=== PATIENT | female | born 1995 | race Caucasian/White ===

== ENCOUNTER 2021-03-12 18:07 | Emergency (ER) | payer SELFPAY ==
--- NOTE | ~2021-03-12 | XR_ITS ---
XR ankle LT min 3V 03/12/2021 18:28 INDICATION: Left ankle pain PROCEDURE: 4 views left ankle COMPARISON: No prior studies for comparison. FINDINGS: Fracture, dislocation or subluxation is not identified. Ankle mortise intact. The soft tiss ues appear within normal limits. No foreign bodies are identified. IMPRESSION: 1: NO ACUTE BONE OR JOINT ABNORMALITY IDENTIFIED. Reviewed, dictated and finalized at location A. [employer] COUNSELOR ASSISTANT
[2021-03-12 18:16] VITALS: BP 115/80; PULSE 89; RESP 16; TEMP 36.3; O2SAT 97
--- NOTE | 2021-03-12 19:02 | ED.LOWEXIN ---
HPI - Extremity Injury (Lower) General Chief Complaint: Extremity Injury, Lower Stated Complaint: left ankle injury Time Seen by Provider: 03/12/21 18:49 Source: patient and RN notes reviewed Mode of arrival: ambulatory Limitations: no limitations History of Present Illness HPI Narrative: Patient presents today complaining of left ankle injury. She missed a step at home and fell twisting the ankle around 1300 this afternoon. She has been nonambulatory since the injury. Denies numbness or tingling. She currently rates her ankle pain 4/10 and has tried Tylenol and ibuprofen prior to arrival. This has provided some relief. Pain increases with weightbearing and movement. MD complaint: ankle injury Related Data Home Medications Medication Instructions Recorded Confirmed No Home Medications 03/12/21 03/12/21 Allergies Allergy/AdvReac Type Severity Reaction Status Date / Time Penicillins Allergy Intermediate Rash Verified 03/12/21 18:35 Review of Systems Review of Systems: CONSTITUTIONAL: Denies body aches, fever, chills, or sweats. EYES: Denies visual changes, redness, or discharge. ENT: Denies rhinorrhea, congestion, sore throat, or otalgia. CARDIOVASCULAR: Denies chest pain, palpitations, or edema. RESPIRATORY: Denies cough or dyspnea. GASTROINTESTINAL: Denies abdominal pain, nausea, vomiting, or diarrhea. GENITOURINARY: Denies dysuria or hematuria. SKIN: Denies rash, itching, or wounds. MUSCULOSKELETAL: Denies back pain, or myalgia. + Left ankle injury NEUROLOGIC: Denies headache, numbness, tingling, or weakness. PSYCH: Denies depression or anxiety. PMFSH Comments At time of signature, I have reviewed and agree with nursing past medical, surgical, social and family history unless otherwise noted. Please see nursing chart for further information. There is no relevant family history pertinent to the presenting complaint Exam Narrative: GENERAL: Well-appearing, well-nourished, and in no acute distress. HEAD: Normocephalic, atraumatic. EYES: EOMI. No redness or drainage. Conjunctivae normal. ENT: Mucous membranes pink and moist. NECK: Normal AROM. CHEST: No respiratory distress. EXTREMITIES: Left ankle: Tenderness, moderate localized swelling and ecchymosis to the lateral malleolus. Distal sensation intact. Capillary refill normal. Pedal pulse normal. Decreased range of motion due to pain. SKIN: Warm, dry, no rash. Capillary refill normal. Normal skin turgor. NEURO: No focal deficits. Alert and oriented x3. Gait steady. PSYCH: Normal affect. No signs of depression or anxiety. Course Vital Signs Vital signs: Vital Signs Temperature 97.3 F L 03/12/21 18:16 Pulse Rate 89 03/12/21 18:16 Respiratory Rate 16 03/12/21 18:16 Blood Pressure 115/80 03/12/21 18:16 Pulse Oximetry 97 03/12/21 18:16 Temperature 97.3 F L 03/12/21 18:16 Pulse Rate 89 03/12/21 18:16 Respiratory Rate 16 03/12/21 18:16 Blood Pressure 115/80 03/12/21 18:16 Pulse Oximetry 97 03/12/21 18:16 Reviewed MDM - Extremity Injury (Lower) Differential Diagnosis Differential diagnosis: Likely ankle sprain and strain and ankle fracture Imaging Data Radiologist's impression: ITS Impressions Ankle X-Ray 03/12/21 18:31 IMPRESSION: 1: NO ACUTE BONE OR JOINT ABNORMALITY IDENTIFIED. Critical Care Time Critical Care Time Critical Care Time: No Discharge Plan Discharge Clinical Impression: Left ankle sprain Qualifiers: Encounter type: initial encounter Involved ligament of ankle: unspecified ligament Qualified Code(s): S93.402A - Sprain of unspecified ligament of left ankle, initial encounter Patient Disposition: Home, Self-Care Condition: Stable Instructions: Ankle Sprain (DC) Additional Instructions: Your ankle x-ray is negative for fracture today. Elevate and ice the ankle. Take 6 to 800 mg of ibuprofen every 6-8 hours for up to 1000 mg of Tylenol every 6 hours fo
== END 2021-03-12 19:10 | disposition home or self-care (01) ==
PROVIDERS: Emergency Provider Nurse Practitioner
DX: S93.402A Sprain of unspecified ligament of left ankle, initial encounter (principal); W19.XXXA Unspecified fall, initial encounter
CPT/HCPCS: 73610; 99213; G0463

== ENCOUNTER 2022-11-21 06:24 | Inpatient (IN) | payer OTHER, SELFPAY ==
[2022-11-21] VITALS (117 sets, daily range): BP systolic 85–174; BP diastolic 45–161; PULSE 72–192; RESP 18; TEMP 36.3–37.7; O2SAT 95–100
--- NOTE | 2022-11-21 06:57 | LDADM ---
This patient, Shira Kumar, was admitted to Labor/Delivery/Recovery 108 on 11/21/22 at 06:24. Plans for labor, pain management and were discussed with patient. Patient/family oriented to hospital policies and general routines including ID bracelet, bed and alarms, visiting hours, pain management, procedures, bathroom and other care routines, personal items, smoking policy, room service/diet and guest tray routines, infant security routines, and visiting hours. Patient/Family are encouraged to report perceived risks to care and to ask questions if they do not understand what they are told or what they should do. See OBIX for further documentation.
[2022-11-21 07:06] LABS: Basophils Percent Auto 0.3 % (0.2-1.2); Eosinophils Absolute Auto 0.1 K/mm3 (0-0.3); Eosinophils Percent Auto 0.5 % (0-4.4); Hematocrit 38.7 % (37.0-47.0); Hemoglobin 13.2 g/dL (12.0-15.0); Immature Granulocyte Absolute 0.05 K/mm3 (0.00-0.031); Immature Granulocyte Percent A 0.5 % (0-0.5); Lymphocytes Absolute Auto 2.07 K/mm3 (0.9-3.2); Lymphocytes Percent Auto 20.7 % (18.3-44.2); Mean Corpuscular HGB Conc 34.1 g/dl (32-36); Mean Corpuscular Volume 90.8 fl (80-100); Mean Platelet Volume 9.5 fl (7.4-10.4); Monocytes Absolute Auto 0.6 K/mm3 (0.1-0.6); Neutrophils Absolute Auto 7.2 K/mm3 (1.3-6.7); Platelet Count Result 209 k/mm3 (150-375); Red Blood Count 4.26 M/mm3 (4.2-5.4); Red Cell Distribution Width 14.1 % (11.5-14.5)
[2022-11-21] MEDS: LACTATED RINGERS 1,000 ML 125 ML IV CONT (07:30)
[2022-11-21] MEDS: ceFAZolin 2 GM/D5W 50 ML 2 GM/50 ML BAG IVPB (07:32)
[2022-11-21] MEDS: OXYTOCIN 30 UNITS/NS 500 ML 30 UNITS/500 ML BAG 6 UNITS IV CONT (07:34)
--- NOTE | 2022-11-21 08:48 | WPDOBADMIT ---
Obstetrics - Admit Note Admission Note: record reviewed. Additions to the history and/or subsequent changes in the physical findings follow. 27 y/o G1 at 40 5/7 weeks here for induction of labor. GBS pos. AVSS NST reactive TOCO: irregular contractions ABD soft, nontender, gravid EXT nontender Cervix 4-5/80/-2. AROM with clear fluid. Vertex. A; IUP at term with favorable cervix. GBS pos. P: Oxytocin. Ancef. Anticipate .
[2022-11-21] MEDS: LACTATED RINGERS 1,000 ML 999 ML IV CONT (10:02)
--- NOTE | 2022-11-21 10:13 | WPDANESEPPF ---
Anes - Initial Pre Proc Eval Date/Time: 11/21/22 10:13 Surgeon: Chaparro Patel MD Pre Op Diagnosis: Induction of Labor Patient Data Age: 27 Gender: F Height: 1.75 m Weight: 92.4 kg Last Vital Signs Temp 36.7 C 11/21/22 10:00 Pulse 96 11/21/22 10:12 BP 118/69 11/21/22 10:12 Pulse Ox 97 11/21/22 10:11 Allergies Allergy/AdvReac Type Severity Reaction Status Date / Time Penicillins Allergy Intermediate Rash Verified 10/20/22 12:38 Home Medications Medication Instructions Recorded Confirmed Type prenat.vits,barrie,[id number] 1 tablet PO DAILY 10/20/22 11/21/22 History Laboratory Tests 11/21/22 06:48 WBC 10.0 K/mm3 (4.5-10.0) RBC 4.26 M/mm3 (4.2-5.4) Hgb 13.2 g/dL (12.0-15.0) Hct 38.7 % (37.0-47.0) MCV 90.8 fl (80-100) MCH 31.0 pg (26-34) MCHC 34.1 g/dl (32-36) RDW 14.1 % (11.5-14.5) Plt Count 209 k/mm3 (150-375) MPV 9.5 fl (7.4-10.4) Immature Gran % (Auto) 0.5 % (0-0.5) Neut % (Auto) 72.0 % (45.5-73.1) Lymph % (Auto) 20.7 % (18.3-44.2) [place] % (Auto) 6.0 % (2.6-8.5) Eos % (Auto) 0.5 % (0-4.4) Baso % (Auto) 0.3 % (0.2-1.2) Lymph # (Auto) 2.07 K/mm3 (0.9-3.2) [place] # (Auto) 0.6 K/mm3 (0.1-0.6) Eos # (Auto) 0.1 K/mm3 (0-0.3) Baso # (Auto) 0.0 K/mm3 (0.0-0.1) Abs Immat Gran (auto) 0.05 H K/mm3 (0.00-0.031) Absolute Neuts (auto) 7.2 H K/mm3 (1.3-6.7) Absolute Nucleated RBC 0.0 K/mm3 (0.0-0.012) Nucleated RBC % 0.0 % (0.0-0.2) RPR Pending Blood Type O Positive Antibody Screen Negative Patient hx anesthesia problems: none Family hx anesthesia problems: none Results Review: All pre-operative results and documents have been reviewed as part of the pre-operative evaluation. [facility] Family History Family History Other Patient denies significant medical history Social History Social History Smoking status: Never smoker Second hand tobacco smoke exposure: No Substance use: never Lack of Transportation: No Lack of Food: Never True Current Housing: I Have Housing Concerned About Future Housing: No Difficulty Paying Gas/Electric Bills: No Difficulty Paying for Meds: No Currently Unemployed: No Education: Associate Degree Difficulty w/ Childcare or Family Care: No Spiritual care concerns: No Anes - Eval Final PreProcedure Day of Procedure 11/21/22 10:13 Patient weight: overweight Heart: regular rate and rhythm Lungs: clear to auscultation Neurological: alert and oriented ASA classification: II Emergent: no Anesthetic plan: proceed Anesthesia type and monitoring: regional epidural and standard monitoring Results Review: All pre-operative results and documents have been reviewed as part of the pre-operative evaluation. Informed Consent: The patient's anesthetic plan and its attendant risks and benefits were discussed with the patient/family/POA. Questions were solicited and answers provided to the satisfaction of the patient/family/POA.
--- NOTE | 2022-11-21 13:47 | PC.NURSE ---
1220 - Introductions were made and mother shared how she would like to feed her baby with exclusive . Encouraged mother to place infant [id number] until the first feeding if infant is stable and to wait on the weight to help stabilize, reduce stress, and improve latching by allowing time to explore parent's chest using instincts. Education was shared on how to protect her milk supply with latching infant and/or using hand expression to remove milk if infant doesn't latch in the first hour, then finger feed colostrum to the infant to preserve breast focus. Resources provided with educational trifold for bonding and feeding infant. Parents voiced understanding of information and to call if there is a request for assistance.
[2022-11-21 13:48] LABS: Rapid Plasma Reagin Non-Reactive (NonReactive)
--- NOTE | 2022-11-21 14:55 | P.PCNOB_ITS ---
OB - Delivery Note Procedure Delivery date: 11/21/22 Procedure: Induction of labor with Induction method: Per Pitocin Protocol Delivery augmentation: Rupture of Membranes Delivery monitor: External FHT, External Uterine and Internal Uterine Route of delivery: Laceration Description: Perineal - 2nd Degree Delivery repair: vicryl (3-0) Specimen: Yes (Cord blood) Quantitative Blood Loss (ml): 420 Anesthesia type: Epidural Disposition: PACU Complications: None Narrative: 27 y/o G1 at 40 5/7 weeks gestation who presented to the hospital for induction of labor. Oxytocin was administered intravenously. Amniotomy was performed with return of clear fluid. She received an epidural for pain control. Her labor progressed and her cervix dilated completely. She pushed with good effort and delivered the 's head to the perineum, followed by the body. The nose and mouth were bulb suctioned. After a delay, the cord was clamped and cut. The was handed off the field. Cord blood was collected. The placenta delivered spontaneously and was grossly normal in appearance. The usual 3 vessel cord was noted. A second degree midline perineal laceration was sustained. This was reapproximated using 3 0 Vicryl in the usual layered fashion. Excellent hemostasis resulted as did excellent reapproximation of the normal anatomy. Needle and instrument counts were correct. The patient was taken to recovery room in stable condition. The infant went to the nursery in stable condition. I was present and scrubbed for the entire delivery. [place] [facility] Date of : 11/21/22 Time of : 14:32 Weeks of gestation at delivery: 40 gender: Female presentation: vertex position: Left Occiput Anterior Placenta delivery description: Spontaneous and Normal Configuration Cord Vessel Description: 3 Vessels and Delayed Cord Clamping
--- NOTE | 2022-11-21 14:56 | PM.OBDSVD ---
DS: Admitting Diagnosis Discharge Date 11/23/22 Admitting Diagnosis IUP at term DS: Discharge Diagnosis Discharge Diagnosis (1) (normal spontaneous vaginal delivery): Code(s): O80 - Encounter for full-term uncomplicated delivery Status: Acute OB - DS: Summary OB Procedures : None OB Procedures Intrapartum: Spontaneous Vag Delivery OB Procedures: : None Time Spent with Patient Time attestation: Total time spent providing and/or coordinating discharge services: DS: Data Data Completed and Pending Labs on day of discharge: Labs from last 24 hours 11/21/22 06:48 WBC 10.0 RBC 4.26 Hgb 13.2 Hct 38.7 MCV 90.8 MCH 31.0 MCHC 34.1 RDW 14.1 Plt Count 209 MPV 9.5 Immature Gran % (Auto) 0.5 Neut % (Auto) 72.0 Lymph % (Auto) 20.7 [place] % (Auto) 6.0 Eos % (Auto) 0.5 Baso % (Auto) 0.3 Lymph # (Auto) 2.07 [place] # (Auto) 0.6 Eos # (Auto) 0.1 Baso # (Auto) 0.0 Abs Immat Gran (auto) 0.05 H Absolute Neuts (auto) 7.2 H Absolute Nucleated RBC 0.0 Nucleated RBC % 0.0 RPR Non-reactive Blood Type O Positive Antibody Screen Negative Discharge Plan Discharge Attending physician on discharge: Chaparro Patel Discharging Clinician: Chaparro Patel Patient Disposition: Home, Self-Care Activity: pelvic rest Diet: regular Discharge Instructions: Education: Mom and Baby Guide Given to: Mother Follow-Up: Call your delivering provider's office for an appointment to be seen in: 6 Weeks Mom and baby should come to the [facility] for the follow-up appointment. Appointment Date/Time: November 24, 2022 at 11:00 am What to expect at your follow-up visit: Blood Pressure Check Physical Assessment Call [phone] if you are unable to keep your appointment time. BREAST CARE: * Wear a snug supportive bra. * For engorgement discomfort: Breast Feeding: * Apply warm moist washcloths * Express milk as needed to relieve engorgement * Wear loose clothing * For sore nipples: * Identify correct latch-on * Apply warm moist washcloths before and after nursing * Air dry nipples after nursing * May apply Lansinoh cream to nipples PERINEAL CARE: * Until bleeding stops, use your neli bottle after urinating * Change your pad frequently throughout the day * You may take sitz baths several times a day (fill your bathtub with warm water and soak for 20 minutes.) Do NOT bathe in the water * No tub baths until seen by your physician - You may shower ACTIVITY: * Rest as much as possible. * Do not exercise or lift anything heavier than your baby (such as laundry or other children.) * Avoid stairs or driving as much as possible. * Do not put anything into the vagina. No douching, tampons, or sexual activity until seen by physician. NOTIFY PHYSICIAN IF YOU HAVE ANY QUESTIONS OR IF ANY OF THE FOLLOWING SYMPTOMS OCCUR: * If your vaginal bleeding becomes foul smelling. * If your vaginal bleeding becomes more heavy than a period or if your bleeding changes from pink to bright red. However, you may pass an occasional walnut-sized clot once or twice for the first week . * If you experience a sharp, shooting pain in your calves. * If you discover a hard, reddened area on your breast or if you experience flu-like symptoms. DIET: * Eat regular, well-balanced meals. * Drink plenty of fluids daily. If , drink to thirst. Call or return if temperature above 100.4? F, increased abdominal pain, increased vaginal bleeding or any new problems. Stand Alone Forms: General Discharge Information Follow-up/Referrals: Chaparro Patel MD [Physician] - 6 Weeks Discharge Medications: New ibuprofen 600 mg tablet 600 mg PO Q6H PRN (Reason: cramps) Qty: 30 0RF Continued prenat.vits,barrie,[id number] Tablet 1 tablet PO DAILY Date of admission: 11/21/22 06:24 Mariama
[2022-11-21] MEDS: OXYTOCIN 30 UNITS/NS 500 ML 30 UNITS/500 ML BAG 125 UNITS IV CONT (15:01)
[2022-11-21] MEDS: IBUPROFEN 600 MG TABLET PO (19:13)
[2022-11-22] MEDS: IBUPROFEN 600 MG TABLET PO ×3 (01:07→17:16)
[2022-11-22 03:30] VITALS: BP 110/68; PULSE 95; RESP 16; TEMP 36.8; O2SAT 98
[2022-11-22 05:32] LABS: Hematocrit 32.9 % (37.0-47.0); Hemoglobin 11.2 g/dL (12.0-15.0)
[2022-11-22] MEDS: DOCUSATE SODIUM 100 MG CAPSULE PO ×2 (08:24→17:17)
[2022-11-22] MEDS: MULTIVIT/MIN/PREN/FOL AC/IRON TABLET 1 TAB PO (08:24)
[2022-11-22 08:55] VITALS: BP 108/70; PULSE 97; RESP 18; TEMP 36.9; O2SAT 96
[2022-11-22 11:44] VITALS: BP 105/61; PULSE 105; RESP 16; TEMP 36.9; O2SAT 98
--- NOTE | 2022-11-22 12:02 | WPDANLDPN2 ---
Anes-Prog Note L&D Date/Time: 11/22/22 12:02 Neuraxial method: epidural Epidural/Spinal procedure site: clean & non-tender Neuro status: Neuro function grossly intact. Cardiovascular status: normal Respiratory status: normal Airway patency: baseline Mental status: baseline Post-Op hydration status: normal Vital Signs: Last Vital Signs Temp 98.5 F 11/22/22 11:44 Pulse 105 H 11/22/22 11:44 Resp 16 11/22/22 11:44 BP 105/61 11/22/22 11:44 Pulse Ox 98 11/22/22 11:44 O2 Del Method Room Air 11/21/22 17:30 Pain score (VAS): 0 Post-procedural complaints: none Patient feedback: Patient satisfied with anesthetic care.
[2022-11-22] MEDS: ACETAMINOPHEN 325 MG TABLET 650 MG PO ×2 (14:01→21:42)
--- NOTE | 2022-11-22 14:32 | PC.NURSE ---
[id number] Consulted with patient to assess needs related to after a call request. Mother led the conversation with her?plans to feed?her infant and the?experience so far. Mother works well with her infant with encouragement and education. Encouraged understanding of the benefits of skin to skin (demonstrating unwrapping and placing upright on her chest), stimulating with massage touch, changing positions to encourage wakefulness, how to watch for early feeding cues, responsive feeding, feeding on demand (aiming for 8-12 times in 24 hours, about every 2-3 hours), milk production, building/maintaining a milk supply, duration of feeding, signs of adequate intake/output and how to record on the feeding sheet. Reviewed positioning, supporting the breast to facilitate a deep latch, asymmetrical latch (off-center), leading with the chin with a big, open, wide gape and body close to mother. latched optimally to the left breast in football position. Education given to mother of how to visualize suck/swallow ratios and listen for drinking at the breast. Infant was able to maintain latch without discomfort to mother. Nipple care reviewed with optimal latch and good positioning. Reminding mother of comfort measures of healing with a warm and wet washcloth to rinse breast, then leave open to air-dry as needed. Reviewed good handwashing when or touching the breast/nipples to prevent infection. Resources used to facilitate learning were used with the tool, mom and baby guide. Mother voiced understanding of skin to skin, stimulating with massage touch, responsive feedings, hand expressed colostrum, talking to infant to encourage if it has been 2 -2.5 hours since the start of the last , to call if infant does not latch, or if there is discomfort with . Resources provided for inpatient/outpatient with feeding sheet and the mom/baby guide. Parents voiced understanding of information, demonstrated learning and will call if there is a request for assistance. Reported to primary RN.
--- NOTE | 2022-11-22 15:30 | PM.OBPNVD ---
OB - PN: Subj Subjective Date/time seen: 11/22/22 15:30 Narrative: Pain OK. OB - PN: Obj Data Labs 11/22/22 03:54 Labs: Laboratory Results - last 24 hr 11/22/22 03:54 Hgb 11.2 L Hct 32.9 L OB - PN A/P Plan day: 1 Plan: routine care Comments: A: PPD#1, doing well. P: Routine care. Exam Psych: Other: AVSS ABD soft, nontender, fundus firm EXT nontender
[2022-11-22 20:00] VITALS: BP 107/71; PULSE 102; RESP 18; TEMP 36.6; O2SAT 99
[2022-11-23] MEDS: IBUPROFEN 600 MG TABLET PO ×2 (04:07→10:04)
[2022-11-23] MEDS: ACETAMINOPHEN 325 MG TABLET 650 MG PO (07:39)
[2022-11-23] MEDS: DOCUSATE SODIUM 100 MG CAPSULE PO (07:39)
[2022-11-23] MEDS: MULTIVIT/MIN/PREN/FOL AC/IRON TABLET 1 TAB PO (07:40)
[2022-11-23 08:20] VITALS: BP 104/67; PULSE 96; RESP 16; TEMP 36.4; O2SAT 99
--- NOTE | 2022-11-23 10:44 | PC.NURSE ---
Patient viewed the discharge video Mother & Baby Care, The First Two Weeks . Patient was given the opportunity and encouraged to ask questions. Patient verbalized understanding of information shared and has been given the mother/baby guide for home reference.
--- NOTE | 2022-11-23 13:13 | PC.NURSE ---
[id number] Mother led the conversation with her experience and plan to feed her so far and her ability to independently latch optimally without discomfort. Reminded parents to use good handwashing technique to prevent infection. Mother is feeding appropriately for growth of and understands stimulating to eat if needed. Infants latch was assessed. latched to the right breast using football positioning, then after 10-15 min was detached, offered the left breast and effectively breastfed with good swallows recognized visually and heard. has had appropriate feedings in the last 24 hours meets the outcomes for weight, output and jaundice at this time. Mother states she is confident to continue effectively her infant at home, when to call for assistance and denies any additional assistance or education at this time. Reinforced understanding of milk production, transition of milk, signs of adequate intake, transition of stool, prevention/relief of engorgement, responsive watching for feeding cues, the different methods of stimulating infant to breastfeed 2-3 hours after the start of the last feeding and when to call a provider using the resource of the mom and baby guide. Mother voiced understanding of the education shared.
[2022-11-24 11:42] VITALS: BP 119/77; PULSE 94; RESP 18; TEMP 37.3; O2SAT 98
== END 2022-11-23 11:45 | disposition home or self-care (01) | DRG 807 ==
LOC: ANHLDR 14:57 → ANHOB2 17:31
PROVIDERS: Admitting Provider Obstetrics & Gynecology; Visit Provider Obstetrics & Gynecology
DX: O99.824 Streptococcus B carrier state complicating childbirth (principal); Z37.0 Single live birth; Z3A.40 40 weeks gestation of pregnancy; O70.1 Second degree perineal laceration during delivery
CPT/HCPCS: 36415; 85014; 85018; 85025; 86592; 86850; 86900; 86901; A9270; J0690; J2590; J2795; J7120